=== PATIENT | female | born 1980 ===

== ENCOUNTER 2022-02-04 12:25 | Emergency (ER) | payer SELFPAY ==
[2022-02-04 12:38] VITALS: BP 140/81
--- NOTE | 2022-02-04 13:09 | XRay Report ---
CHEST 2 VIEWS INDICATION / CLINICAL INFORMATION: syncope. COMPARISON: None available. FINDINGS: SUPPORT DEVICES: None. HEART / MEDIASTINUM: No significant abnormality. LUNGS / PLEURA: No significant pulmonary or pleural abnormality. No pneumothorax. ADDITIONAL FINDINGS: No significant additional findings. IMPRESSION: 1. No acute findings. Signer Name: Mario Smallwood Jr, MD Signed: 02/04/2022 1:04 PM Workstation Name: [id number]
[2022-02-04 13:40] LABS: Hematocrit 39.8 % (30.3-42.9); Hemoglobin 12.7 gm/dl (10.1-14.3); Mean Corpuscular HGB Conc 32 % (30-34); Mean Corpuscular Volume 83 fl (79-97); Platelet Count 510 K/mm3 (140-440); Red Blood Count 4.78 M/mm3 (3.65-5.03)
[2022-02-04 14:46] LABS: Alanine Aminotransferase 9 units/L (7-56); Albumin 4.5 g/dL (3.9-5); Blood Urea Nitrogen 8 mg/dL (7-17); Calcium 9.9 mg/dL (8.4-10.2); Hemolysis Index 32
[2022-02-04 14:48] LABS: BUN/Creatinine Ratio 11
--- NOTE | 2022-02-04 15:13 | Cat Scan Report ---
CT head/brain wo con INDICATION / CLINICAL INFORMATION: 41 years Female; syncope. TECHNIQUE: Routine CT head without contrast. All CT scans at this location are performed using CT dos e reduction for ALARA by means of automated exposure control. COMPARISON: None. FINDINGS: BRAIN / INTRACRANIAL CONTENTS: No acute hemorrhage, mass effect, midline shift, hydrocephalus, or acu te, large territorial infarct. No signs of significant atrophy or chronic infarct. There are mild areas of decreased attenuation in the white matter of the cerebral hemispheres. These are nonspecific findings and may be related to microangiopathy (hypertension, diabetes, atheroscleros is), demyelinating disease, etc. given the patient's age. Most prevalent findings may be in the white matter of the temporal lobes. Follow-up with MRI, as clinically warranted. CRANIOCERVICAL JUNCTION: No significant abnormality. ORBITS: No significant abnormality of visualized orbits. SINUSES / MASTOIDS: Visualized paranasal sinuses and mastoid air cells are essentially clear. ADDITIONAL FINDINGS: None. IMPRESSION: 1. No focal mass, hemorrhage, hydrocephalus, or acute, large territorial infarct. Signer Name: Shar Dior MD, III Signed: 02/04/2022 3:09 PM Workstation Name: [id number]
--- NOTE | 2022-02-05 10:54 | Electrocardiograph Report ---
Test Date: 2022-02-04 Test Time: 12:41:32 Pat Name: MIS MARCELINO Department: Room: Gender: F Auditor Medical Claims: AF : 1980 Requested By: ANUDREA RODRIGEZ Order Number: [id number] Reading MD: Darin David Measurements Intervals [place] Rate: 90 P: 61 W[place]: 162 QRS: 66 QRSD: 66 T: 52 QT: 345 QTc: 422 Interpretive Statements Sinus rhythm No previous ECG available for comparison Electronically Signed On 02-05-2022 10:53:45 EDT by Darin David
== END 2022-02-04 17:00 | disposition left against medical advice (07) ==
LOC: ED 12:25
DX: S06.0X9A Concussion with loss of consciousness of unspecified duration, initial encounter (principal); Z53.21 Procedure and treatment not carried out due to patient leaving prior to being seen by health care provider; X58.XXXA Exposure to other specified factors, initial encounter; Y93.89 Activity, other specified; Y92.89 Other specified places as the place of occurrence of the external cause; Y99.8 Other external cause status
CPT/HCPCS: 36415; 70450; 71046; 80053; 84484; 85027; 93005